=== PATIENT | male | born 1965 | race Caucasian/White ===

== ENCOUNTER 2016-06-23 15:58 | Inpatient (IN) | payer OTHER ==
[~2016-06-23] VITALS: Ht 172.7 cm; Wt 99.6 kg
[2016-06-23] VITALS (10 sets, daily range): BP systolic 98–149; BP diastolic 68–114
[~2016-06-23 15:58] MED LIST: AMARYL1 MG PO; ASACOL400 MG PO; ASPIR-MOX 325325 MG PO; ATORVASTATIN CA40 MG PO; BENZONATATE100 MG PO; DICLOFENAC SODI75 MG PO; DILAUDID4 MG PO; DOCUSATE SODIU100 MG PO; FENOFIBRATE54 M1 PO; FLEXERIL10 MG PO; FLEXERIL5 MG PO; FORTAMET500 MG PO; GABAPENTIN300 MG PO; GEMFIBROZIL600 MG PO; GLIPIZIDE10 MG PO; Glucotrol PO; JANUMET XR 50-1 EAC1 PO; KADIAN30 MG PO; LEVOFLOXACIN500 MG PO; LOPID600 M1 PO; METFORMIN HCL1000 MG PO; MIRALAX, GLYCOL1 PK1 PO; MORPHINE SULFAT15 MG PO; NAPROSYN500 MG PO; NORCO 5/3251 TABLET PO; Norvasc PO; OMEPRAZOLE20 MG PO; OXYCODONE HCL5 MG PO; OXYCODONE15 MG PO; PANCRELIPASE PO; PERCOCET 10-321 EACH PO; PERCOCET 10/1 TABLET PO; PERCOCET 5-3251 EACH PO; PERCOCET 5/31 TABLET PO; PHENERGAN-CODE120 ML PO; PHENERGAN12.5 M1 PO; PROTONIX40 MG PO; PROVENTIL,200 INHALA IH; Percocet 10/325,Endo PO; RANITIDINE HCL150 MG PO; SENOKOT,SENN1 TABLET PO; TRILIPIX135 MG PO; VIBRAMYCIN100 MG PO; ZESTRIL,PRINIVI10 MG PO; ZOFRAN4 MG PO
[2016-06-23 16:22] LABS: EOSINOPHIL (%) 0.4 % (0-5); EOSINOPHIL COUNT 0.1 K/uL (0-0.3); HEMATOCRIT 46.4 % (38.0-50.0); IMMATURE GRANULOCYTE (%) 0.4 % (0.0-0.7); IMMATURE GRANULOCYTE COUNT 0.5 K/uL; LYMPHOCYTE COUNT 2.5 K/uL (1.0-2.8); MCHC 34.9 G/DL (30.0-36.0); MCV 80.3 FL (86-99); MEAN PLAT.VOLUME 9.6 uM^3 (9.0-12.4); MONOCYTE (%) 5.2 % (3-12); MONOCYTE COUNT 0.7 K/uL (0-0.8); NEUTROPHIL (%) 74.2 % (45-76); NEUTROPHIL COUNT 9.4 K/uL (1.8-6.4); PLATELET COUNT 223 K/uL (156-360); RBC DIS.WIDTH-CV 13.7 % (11.8-14.6); RBC DIS.WIDTH-SD 39.7 % (39-53); RED BLOOD COUNT 5.78 M/uL (4.00-5.50); WHITE BLOOD COUNT 12.7 K/uL (4.1-10.2)
[2016-06-23 16:33] LABS: INTER. NORMALIZED RATIO 1.1; PROTHROMBIN TIME 11.1 (9.2-11.2)
[2016-06-23 16:35] LABS: CHLORIDE 97 mEq/L (99-109); POTASSIUM 4.3 mEq/L (3.7-5.4); SODIUM 138 mEq/L (136-147)
[2016-06-23 16:36] LABS: MAGNESIUM 2.2 mg/dL (1.3-2.7)
[2016-06-23 16:37] LABS: GLUCOSE 223 mg/dL (70-99)
[2016-06-23 16:39] LABS: ANION GAP 11 MEQ/L (2-14)
[2016-06-23 16:41] LABS: GFR ESTIMATE (CALCULATED) > 59 mL/min/
[2016-06-23 16:42] LABS: UREA NITROGEN (BUN) 15 mg/dL (9-23)
[2016-06-23 16:47] LABS: TROP-I INTERPRETATION POSITIVE; TROPONIN-I 0.78 ng/mL (0.0-0.30)
[2016-06-23 19:50] LABS: METH RESISTANT S AUREUS PCR NEGATIVE (NEGATIVE)
[2016-06-23 19:51] LABS: PROBE CHECK PASS; SPECIMEN PROCESSING CONTROL PASS
[2016-06-23 21:41] LABS: POINT-OF-CARE METER ID UU14162636
[2016-06-24] VITALS (19 sets, daily range): BP systolic 90–148; BP diastolic 53–88
[2016-06-24 01:00] LABS: TOTAL CK 2868 IU/L (1-294)
[2016-06-24 01:05] LABS: TROP-I INTERPRETATION POSITIVE
[2016-06-24 01:08] LABS: CK-MB 277.8 ng/mL (0.0-4.9)
[2016-06-24 01:24] LABS: CREATINE KINASE 2868 IU/L (1-294)
[2016-06-24 01:25] LABS: TROPONIN-I 95.01 ng/mL (0.0-0.30)
[2016-06-24 05:53] LABS: HEMATOCRIT 42.1 % (38.0-50.0); MCH 28.7 PG (29.0-34.0); MCHC 34.2 G/DL (30.0-36.0); MEAN PLAT.VOLUME 10.2 uM^3 (9.0-12.4); PLATELET COUNT 194 K/uL (156-360); RBC DIS.WIDTH-CV 13.9 % (11.8-14.6); RBC DIS.WIDTH-SD 42.3 % (39-53); RED BLOOD COUNT 5.01 M/uL (4.00-5.50); WHITE BLOOD COUNT 8.9 K/uL (4.1-10.2)
[2016-06-24 06:06] LABS: TROP-I INTERPRETATION POSITIVE
[2016-06-24 06:22] LABS: EOSINOPHIL (%) 1.1 % (0-5); EOSINOPHIL COUNT 0.1 K/uL (0-0.3); IMMATURE GRANULOCYTE (%) 0.4 % (0.0-0.7); LYMPHOCYTE COUNT 2.7 K/uL (1.0-2.8); MONOCYTE (%) 6.6 % (3-12); MONOCYTE COUNT 0.6 K/uL (0-0.8); NEUTROPHIL (%) 61.6 % (45-76); NEUTROPHIL COUNT 5.5 K/uL (1.8-6.4)
[2016-06-24 06:31] LABS: ALKALINE PHOSPHATASE 57 IU/L (3-129); TOTAL BILIRUBIN 0.3 MG/DL (0.0-1.0)
[2016-06-24 07:45] LABS: ANION GAP 8 MEQ/L (2-14); CHLORIDE 101 MEQ/L (99-109); GFR ESTIMATE (CALCULATED) > 59 mL/min/; GLUCOSE 217 mg/dL (70-99); HDL CHOLESTEROL 21 MG/DL (Desirable>=40); NON-HDL CHOLESTEROL 189 mg/dL (Desirable<160); POTASSIUM 4.1 MEQ/L (3.7-5.4); SAMPLE HEMOLYSIS CHECK 0; SAMPLE ICTERIC CHECK 0; SAMPLE LIPEMIA CHECK 1; SODIUM 135 MEQ/L (136-147); TOTAL CHOLESTEROL 210 mg/dL (Desirable<200); TOTAL CK 1798 IU/L (1-294); TRIGLYCERIDES 895 MG/DL (Normal: <150); UREA NITROGEN (BUN) 13 mg/dL (9-23)
[2016-06-24 07:50] LABS: CREATINE KINASE 1798 IU/L (1-294)
[2016-06-24 07:55] LABS: Estimated Average Glucose 214 mg/dL (70-123); HEMOGLOBIN A1c (GLYCOHEMOGLOB) 9.1 % HGB (Below 5.7)
[2016-06-24 09:43] LABS: CK-MB 193.8 ng/mL (0.0-4.9)
[2016-06-24 12:13] LABS: POINT-OF-CARE METER ID UU13113803
[2016-06-24 13:26] LABS: TROP-I INTERPRETATION POSITIVE; TROPONIN-I 40.93 ng/mL (0.0-0.30)
[2016-06-24 13:51] LABS: CK-MB 117.6 ng/mL (0.0-4.9)
[2016-06-24 14:56] LABS: CREATINE KINASE 1304 IU/L (1-294); TOTAL CK 1304 IU/L (1-294)
[2016-06-24 17:57] LABS: POINT-OF-CARE METER ID UU13113803
[2016-06-25 04:27] VITALS: BP 135/75
[2016-06-25 06:48] LABS: HEMATOCRIT 43.2 % (38.0-50.0); MCH 26.9 PG (29.0-34.0); MCHC 32.2 G/DL (30.0-36.0); MCV 83.6 FL (86-99); MEAN PLAT.VOLUME 9.8 uM^3 (9.0-12.4); PLATELET COUNT 180 K/uL (156-360); RBC DIS.WIDTH-CV 13.7 % (11.8-14.6); RBC DIS.WIDTH-SD 41.7 % (39-53); RED BLOOD COUNT 5.17 M/uL (4.00-5.50); WHITE BLOOD COUNT 8.8 K/uL (4.1-10.2)
[2016-06-25 07:04] LABS: ANION GAP 7 MEQ/L (2-14); CHLORIDE 100 MEQ/L (99-109); GFR ESTIMATE (CALCULATED) > 59 mL/min/; GLUCOSE 173 mg/dL (70-99); POTASSIUM 4.4 MEQ/L (3.7-5.4); SAMPLE HEMOLYSIS CHECK 0; SAMPLE ICTERIC CHECK 0; SAMPLE LIPEMIA CHECK 0; SODIUM 136 MEQ/L (136-147); UREA NITROGEN (BUN) 12 mg/dL (9-23)
[2016-06-25 07:50] VITALS: BP 110/62
[2016-06-25 13:22] VITALS: BP 111/68
[2016-06-25] MEDS ORDERED: LYRICA50 MG PO (14:24)
[2016-06-25] MEDS ORDERED: NOVOLOG 10100 UNITS/ SC (14:26)
[2016-06-25] MEDS ORDERED: LANTUS 10100 UNITS/ SC (14:26)
[2016-06-25 15:01] VITALS: BP 17/66
[2016-06-25] MEDS ORDERED: LOPRESSOR25 MG PO (15:02)
[2016-06-25] MEDS ORDERED: NITROSTAT0.4 MG SL (15:02)
[2016-06-25] MEDS ORDERED: ASPIR-LOW81 MG PO (15:02)
[2016-06-25] MEDS ORDERED: LISINOPRIL2.5 MG PO (15:02)
[2016-06-25] MEDS ORDERED: CLOPIDOGREL75 MG PO (15:03)
[2016-06-25] MEDS ORDERED: NICOTINE PATCH1 EAC2 TD (15:03)
== END 2016-06-25 17:21 | disposition home health service (06) | DRG 247 ==
LOC: EME 15:58 → CATH 16:31 → EME 16:31 → 4EAST 18:05 → 4WEST 18:05 → 4EAST 06-24 20:48
PROVIDERS: Emergency Medicine; Internal Medicine Cardiovascular Disease; Internal Medicine Nephrology
PROC: B211YZZ Fluoroscopy of Multiple Coronary Arteries using Other Contrast (ICD-10-PCS; principal; 2016-06-23)
PROC: B215YZZ Fluoroscopy of Left Heart using Other Contrast (ICD-10-PCS; principal; 2016-06-23)
PROC: 4A023N7 Measurement of Cardiac Sampling and Pressure, Left Heart, Percutaneous Approach (ICD-10-PCS; principal; 2016-06-23)
PROC: 027036Z Dilation of Coronary Artery, One Artery with Three Drug-eluting Intraluminal Devices, Percutaneous Approach (ICD-10-PCS; principal; 2016-06-23)
DX: I21.3 ST elevation (STEMI) myocardial infarction of unspecified site (principal); F11.20 Opioid dependence, uncomplicated; I10 Essential (primary) hypertension; I25.10 Atherosclerotic heart disease of native coronary artery without angina pectoris; E11.9 Type 2 diabetes mellitus without complications; E78.5 Hyperlipidemia, unspecified; G89.29 Other chronic pain; M54.9 Dorsalgia, unspecified; E78.1 Pure hyperglyceridemia; F17.210 Nicotine dependence, cigarettes, uncomplicated; G80.9 Cerebral palsy, unspecified; Z99.3 Dependence on wheelchair
CPT/HCPCS: 80048; 80061; 80076; 82550; 82550 91; 82553; 82948; 83036; 83735; 84484; 85025; 85027; 85347; 85610; 85730; 86850; 86900; 86901; 87641; 93005; 94799; 99281; 99282; C1725; C1769; C1874; C1887; J0153; J1644; J1815; J2250; J3010; J3246; J7030

== ENCOUNTER 2016-07-22 12:46 | Emergency (ER) | payer OTHER ==
[~2016-07-22] VITALS: Ht 170.2 cm; Wt 96.4 kg
[~2016-07-22 12:46] MED LIST changes: +ASPIR-LOW81 MG PO; +CLOPIDOGREL75 MG PO; +LANTUS 10100 UNITS/ SC; +LISINOPRIL2.5 MG PO; +LOPRESSOR25 MG PO; +LYRICA50 MG PO; +NICOTINE PATCH1 EAC2 TD; +NITROSTAT0.4 MG SL; +NOVOLOG 10100 UNITS/ SC
[2016-07-22 13:31] LABS: HEMATOCRIT 46.4 % (38.0-50.0); MCH 27.7 PG (29.0-34.0); MCHC 33.2 G/DL (30.0-36.0); MCV 83.6 FL (86-99); MEAN PLAT.VOLUME 9.4 uM^3 (9.0-12.4); PLATELET COUNT 224 K/uL (156-360); RBC DIS.WIDTH-CV 13.1 % (11.8-14.6); RED BLOOD COUNT 5.55 M/uL (4.00-5.50); WHITE BLOOD COUNT 10.4 K/uL (4.1-10.2)
[2016-07-22 13:41] LABS: CHLORIDE 102 mEq/L (99-109); POTASSIUM 4.4 mEq/L (3.7-5.4); SODIUM 139 mEq/L (136-147)
[2016-07-22 13:43] LABS: GLUCOSE 208 mg/dL (70-99)
[2016-07-22 13:44] LABS: ANION GAP 9 MEQ/L (2-14)
[2016-07-22 13:45] LABS: TOTAL BILIRUBIN 0.4 mg/dL (0.0-1.0)
[2016-07-22 13:47] LABS: ALKALINE PHOSPHATASE 53 IU/L (3-129); GFR ESTIMATE (CALCULATED) > 59 mL/min/
[2016-07-22 13:48] LABS: UREA NITROGEN (BUN) 10 mg/dL (9-23)
[2016-07-22 13:48] LABS: ADD MIUA? YES; BILIRUBIN NEGATIVE; BLOOD NEGATIVE; COLOR YELLOW ((YELLOW)); GLUCOSE (STRIP) 50; KETONES NEGATIVE; LEUKOCYTES NEGATIVE; NITRITE NEGATIVE; PROTEIN (STRIP) NEGATIVE; SPECIFIC GRAVITY 1.014 (1.000-1.030); UROBILINOGEN 0.2 MG/DL (0.2-1.0)
[2016-07-22 13:55] LABS: BACTERIA RARE /HPF; EPITHELIAL CELLS RARE /HPF; MUCUS TRACE /LPF; RED BLOOD CELLS 0-5 /HPF (0-5); WHITE BLOOD CELLS 0-5 /HPF (0-5)
[2016-07-22 13:56] LABS: LIPASE 7 U/L (1.0-51.0)
[2016-07-22 14:13] LABS: TROP-I INTERPRETATION NEGATIVE; TROPONIN-I 0.06 ng/mL (0.0-0.30)
[2016-07-22] MEDS ORDERED: TAMSULOSIN HCL0.4 MG PO (14:30)
[2016-07-22] MEDS ORDERED: OXYCODONE HCL10 MG PO (14:32)
[2016-07-22] MEDS ORDERED: FLEXERIL10 MG PO (14:34)
[2016-07-22] MEDS ORDERED: LO-DOSE ASPIRIN81 M2 PO (14:34)
[2016-07-22] MEDS ORDERED: ULTRAM50 MG PO (19:01)
[2016-07-22 19:11] VITALS: BP 121/70
== END 2016-07-22 19:28 | disposition home or self-care (01) ==
LOC: EME → EDBD 12:46 → EME 12:46
PROVIDERS: Nurse Practitioner Family
DX: R10.9 Unspecified abdominal pain (principal); J45.909 Unspecified asthma, uncomplicated; E11.9 Type 2 diabetes mellitus without complications; I10 Essential (primary) hypertension; K21.9 Gastro-esophageal reflux disease without esophagitis; Z98.61 Coronary angioplasty status; G89.29 Other chronic pain; Z79.4 Long term (current) use of insulin; F17.200 Nicotine dependence, unspecified, uncomplicated
CPT/HCPCS: 74177; 80053; 81003; 83690; 84484; 85027; 99281; 99285; J2270; J2405; J7030

== ENCOUNTER 2017-03-17 09:06 | Day surgery (SDC) | payer OTHER ==
[~2017-03-17] VITALS: Ht 172.7 cm; Wt 89.0 kg
[~2017-03-17 09:06] MED LIST changes: +LO-DOSE ASPIRIN81 M2 PO; +OXYCODONE HCL10 MG PO; +TAMSULOSIN HCL0.4 MG PO; +ULTRAM50 MG PO
[2017-03-17 09:31] LABS: HEMATOCRIT 43.9 % (38.0-50.0); MCH 28.3 PG (29.0-34.0); MCHC 33.9 G/DL (30.0-36.0); MCV 83.3 FL (86-99); MEAN PLAT.VOLUME 10.1 uM^3 (9.0-12.4); PLATELET COUNT 191 K/uL (156-360); RED BLOOD COUNT 5.27 M/uL (4.00-5.50); WHITE BLOOD COUNT 7.3 K/uL (4.1-10.2)
[2017-03-17 09:41] LABS: INTER. NORMALIZED RATIO 1.1; PROTHROMBIN TIME 12.1 SEC (10.2-12.9)
[2017-03-17 09:43] LABS: CHLORIDE 102 mEq/L (99-109); POTASSIUM 4.5 mEq/L (3.7-5.4); SODIUM 136 mEq/L (136-147)
[2017-03-17 09:44] LABS: GLUCOSE 287 mg/dL (70-99)
[2017-03-17 09:46] LABS: ANION GAP 11 MEQ/L (2-14)
[2017-03-17 09:48] LABS: GFR ESTIMATE (CALCULATED) > 59 mL/min/
[2017-03-17 09:49] LABS: UREA NITROGEN (BUN) 14 mg/dL (9-23)
[2017-03-17 09:54] LABS: TROP-I INTERPRETATION NEGATIVE; TROPONIN-I < 0.01 ng/mL (0.0-0.30)
[2017-03-17] MEDS ORDERED: METFORMIN HCL1000 MG PO (09:57)
[2017-03-17] MEDS ORDERED: DULOXETINE HCL30 MG PO (10:00)
[2017-03-17 17:18] VITALS: BP 111/56
[2017-03-17 18:57] LABS: TROP-I INTERPRETATION NEGATIVE; TROPONIN-I 0.18 ng/mL (0.0-0.30)
[2017-03-17 19:44] VITALS: BP 113/66
[2017-03-18 00:28] VITALS: BP 111/67
[2017-03-18 00:57] LABS: TROP-I INTERPRETATION NEGATIVE; TROPONIN-I 0.28 ng/mL (0.0-0.30)
[2017-03-18 05:09] VITALS: BP 114/69
[2017-03-18 05:31] LABS: EOSINOPHIL (%) 1.3 % (0-5); EOSINOPHIL COUNT 0.1 K/uL (0-0.3); HEMATOCRIT 40.2 % (38.0-50.0); IMMATURE GRANULOCYTE (%) 0.6 % (0.0-0.7); IMMATURE GRANULOCYTE COUNT 0.1 K/uL; INSTRUMENT ABS NEUTROPHIL CT 4.6 K/uL; LYMPHOCYTE COUNT 2.9 K/uL (1.0-2.8); MCH 27.5 PG (29.0-34.0); MCHC 32.3 G/DL (30.0-36.0); MEAN PLAT.VOLUME 9.8 uM^3 (9.0-12.4); MONOCYTE (%) 7.5 % (3-12); MONOCYTE COUNT 0.6 K/uL (0-0.8); NEUTROPHIL (%) 55.1 % (45-76); NEUTROPHIL COUNT 4.6 K/uL (1.8-6.4); PLATELET COUNT 180 K/uL (156-360); RBC DIS.WIDTH-CV 13.1 % (11.8-14.6); RED BLOOD COUNT 4.73 M/uL (4.00-5.50); WHITE BLOOD COUNT 8.3 K/uL (4.1-10.2)
[2017-03-18 05:48] LABS: TROP-I INTERPRETATION INDETERMINATE; TROPONIN-I 0.45 ng/mL (0.0-0.30)
[2017-03-18 05:57] LABS: ANION GAP 9 MEQ/L (2-14); CHLORIDE 100 MEQ/L (99-109); GFR ESTIMATE (CALCULATED) > 59 mL/min/; GLUCOSE 241 mg/dL (70-99); SAMPLE HEMOLYSIS CHECK 0; SAMPLE ICTERIC CHECK 0; SAMPLE LIPEMIA CHECK 0; SODIUM 136 MEQ/L (136-147); UREA NITROGEN (BUN) 15 mg/dL (9-23)
[2017-03-18 07:51] VITALS: BP 100/55
[2017-03-18 10:05] LABS: POINT-OF-CARE METER ID UU13113696; POINT-OF-CARE USER ID HMLCJM07
[2017-03-18 11:50] VITALS: BP 136/66
[2017-03-18 16:24] VITALS: BP 112/64
[2017-03-18] MEDS ORDERED: LISINOPRIL2.5 MG PO (16:56)
== END 2017-03-18 18:35 | disposition home or self-care (01) ==
LOC: EME 09:06 → CATH 09:33 → 2SOUTH 13:00 → 4EAST 13:00 → ENRESERV 13:45 → 4EAST 17:19
PROVIDERS: Emergency Medicine; Internal Medicine Cardiovascular Disease
DX: I24.9 Acute ischemic heart disease, unspecified (principal); I25.110 Atherosclerotic heart disease of native coronary artery with unstable angina pectoris; I10 Essential (primary) hypertension; E11.9 Type 2 diabetes mellitus without complications; E78.5 Hyperlipidemia, unspecified; I25.2 Old myocardial infarction; K21.9 Gastro-esophageal reflux disease without esophagitis; G80.9 Cerebral palsy, unspecified; M54.5 Low back pain; G89.29 Other chronic pain; F17.210 Nicotine dependence, cigarettes, uncomplicated; Z95.5 Presence of coronary angioplasty implant and graft; Z86.73 Personal history of transient ischemic attack (TIA), and cerebral infarction without residual deficits; Z79.891 Long term (current) use of opiate analgesic; Z79.4 Long term (current) use of insulin; Z88.2 Allergy status to sulfonamides; Z79.82 Long term (current) use of aspirin; Z79.02 Long term (current) use of antithrombotics/antiplatelets
CPT/HCPCS: 80048; 82948; 84484; 85025; 85027; 85347; 85610; 93005; 93306; 99281; 99285; C1760; C1769; C1874; C1887; C1894; G0378; J1170; J1200; J1644; J2250; J2270; J3010; J3246

== ENCOUNTER 2017-05-17 17:25 | Emergency (ER) | payer OTHER ==
[~2017-05-17] VITALS: Ht 172.7 cm; Wt 98.2 kg
[~2017-05-17 17:25] MED LIST changes: +DULOXETINE HCL30 MG PO
[2017-05-17] MEDS ORDERED: NORCO 5/3251 TABLET PO (19:39)
[2017-05-17] MEDS ORDERED: KEFLEX500 MG PO (19:39)
[2017-05-17 20:09] VITALS: BP 142/87
[2017-05-18] MEDS ORDERED: DOXYCYCLINE HY100 MG PO (17:57)
== END 2017-05-17 20:10 | disposition home or self-care (01) ==
LOC: EME 17:25
PROC: 0H98XZZ Drainage of Buttock Skin, External Approach (ICD-10-PCS; principal; 2017-05-17)
DX: L02.31 Cutaneous abscess of buttock (principal); E11.9 Type 2 diabetes mellitus without complications; E78.5 Hyperlipidemia, unspecified; F17.200 Nicotine dependence, unspecified, uncomplicated; Z88.5 Allergy status to narcotic agent; Z88.2 Allergy status to sulfonamides
CPT/HCPCS: 99281; 99284

== ENCOUNTER 2017-05-18 16:03 | Emergency (ER) | payer OTHER ==
[~2017-05-18] VITALS: Ht 172.7 cm; Wt 96.2 kg
[~2017-05-18 16:03] MED LIST changes: +KEFLEX500 MG PO
[2017-05-18] MEDS ORDERED: DOXYCYCLINE HY100 MG PO (17:57)
[2017-05-18 18:13] VITALS: BP 110/74
== END 2017-05-18 18:14 | disposition home or self-care (01) ==
LOC: EME 16:03
DX: K61.0 Anal abscess (principal); I10 Essential (primary) hypertension; E78.5 Hyperlipidemia, unspecified; E11.9 Type 2 diabetes mellitus without complications; Z79.4 Long term (current) use of insulin; Z95.5 Presence of coronary angioplasty implant and graft; Z86.73 Personal history of transient ischemic attack (TIA), and cerebral infarction without residual deficits; Z79.82 Long term (current) use of aspirin; Z79.891 Long term (current) use of opiate analgesic; F17.200 Nicotine dependence, unspecified, uncomplicated
CPT/HCPCS: 99281; 99284